=== PATIENT | female | born 1995 | race Caucasian/White ===

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

== ENCOUNTER 2017-05-09 12:30 | Emergency (ER) | payer OTHER ==
[2017-05-09 12:36] VITALS: BMI 30.6
[2017-05-09] MEDS ORDERED: ONDANSETRON 4 MG/2 ML VIAL IVPUSH ONE (13:28)
[2017-05-09] MEDS ORDERED: LACTATED RINGERS SOLUTION 1000 ML INFUS.BAG IV ONE (13:30)
--- NOTE | 2017-05-09 13:39 | PDOC ---
History of Present Illness - General Chief Complaint: Syncope/Near Syncope Stated Complaint: FLU LIKE SYMPTOMS Time Seen by Provider: 05/09/17 13:04 - History of Present Illness Initial Comments: Ms Juarez is an otherwise healthy 22yo F who presents w/ 3 days of NBNB emesis and one syncopal episode. For the past 3 days the patient has endorse flu like symptoms of fever, chills bodyaches, cough, and endorses a sick contact (mother) . She endorses 4 episodes per day of NBNB emesis. Yesterday, she was in the bathroom vomiting, felt the blood rushing out of her head, felt warm, and had a sudden syncopal episode. She was syncopized for possibly 1 minute and awoke to find herself lying on her bed with mother and brother next to her. She denied post syncopal confusion. Denies past hx of seizures, tongue biting, or incontinence. She endorses past episodes of vasovagal syncope. With regard to her emesis, she is able to keep some food/liquid down, but has loss of appetite. SH - Denies smoking, alcohol, drugs Allergies - NKDA PCP - Unknown name Past History - Past Medical History Allergies/Adverse Reactions: Allergies Allergy/AdvReac Type Severity Reaction Status Date / Time No Known Allergies Allergy Verified 05/09/17 12:31 Home Medications: Ambulatory Orders Azithromycin [Zithromax 250mg Tablets -] 250 mg PO UTDICT #6 tab 12/25/16 Ibuprofen [Motrin -] 600 mg PO QID #28 tablet 12/25/16 Ondansetron [Zofran *Odt*] 8 mg SL TID PRN #15 od.tablet 05/09/17 Asthma: No Cancer: No Cardiac Disorders: No COPD: No Diabetes: No HTN: No Seizures: No Thyroid Disease: No - Suicide/Smoking/Psychosocial Hx Smoking History: Never smoked Have you smoked in the past 12 months: No Information on smoking cessation initiated: No Hx Alcohol Use: No Drug/Substance Use Hx: No Substance Use Type: None Hx Substance Use Treatment: No Review of Systems - Review of Systems Able to Perform ROS?: Yes Constitutional: Yes: Chills, Fever HEENTM: No: Blurred Vision, Recent change in vision Respiratory: Yes: Cough. No: Shortness of Breath Cardiac (ROS): No: Chest Pain, Irregular Heart Rate ABD/GI: Yes: Poor Appetite, Poor Fluid Intake, Vomiting. No: Abdominal Distended, Abd. Pain w/ defecation, Diarrhea : No: Burning, Dysuria, Flank Pain Musculoskeletal: No: Back Pain, Joint Pain, Joint Swelling Integumentary: No: Bruising, Change in Hair/Nails Neurological: No: Headache, Numbness Psychiatric: No: Anxiety, Depression Endocrine: No: Excessive Sweating, Flushing Hematologic/Lymphatic: No: Anemia, Blood Clots, Easy Bleeding *Physical Exam - Vital Signs Last Vital Signs Temp Pulse Resp BP Pulse Ox 98.9 F 86 18 114/75 95 05/09/17 12:32 05/09/17 12:32 05/09/17 12:32 05/09/17 12:32 05/09/17 12:32 - Physical Exam Comments: GEN: AAOx3, appears ill, intermittently coughing during the interview HEENT: PERRLA, EOMi, flushed face CV: S1, S2, no murmurs audible LUNG: CTABL ABD: Soft, NT, ND MSK: NO edema, no erythema NEURO: CN 2-12 intact, no MSK or sensation deficits Heart Score/ECG Review - ECG Intrepretation Comment:: NSR @ 74bpm Normal axis Bifid p wave, ST or T wave abnormalities QTc normal at 388 ED Treatment Course - LABORATORY CBC & Chemistry Diagram: 05/09/17 13:59 05/09/17 13:59 Medical Decision Making - Medical Decision Making Ms Newby is a 22yo otherwise relatively healthy female who presents to ER with 3 days of NBNB emesis associated w/ flu like symptoms, and one episode of syncope. I suspect the emesis is likely secondary to a viral respiratory condition such as influenza, and less likely gastroenteritis or intra-abdominal pathology. I suspect her syncope is vasovagal in nature, and secondary to intravascular depletion from the emesis. -- CBC, CMP -- UA, Urine -- EKG -- Flu swab -- Zofran x1, IVF 1L bolus Will re-evaluate and likely dispo home. *DC/Admit/Observation/Transfer Diagnosis at time of Disposition: Viral upper respiratory illness - Discharge Dispostion Disposition: HOME Condition at time of disposition: Improved Admit: No - Prescriptions Prescriptions: Ondansetron [Zofran *Odt*] 8 mg SL TID PRN #15 od.tablet PRN Reason: Nausea - Referrals Referrals: Alcon Gutiérrez MD [Staff Physician] - 14 days - Patient Instructions Printed Discharge Instructions: DI for Viral Upper Respiratory Infection -- Adult Additional Instructions: You were seen in the ER due to a viral illness that lead to you vomiting and fainting once. I suspect that you were vomiting so much that you had decreased fluid in your bloodstream which lead to you fainting. Flu test was negative, but we still suespect a viral condition. Please keep hydrated and rest. We will prescribe you anti-nausea medications to help you. - Post Discharge Activity
[2017-05-09] MEDS ORDERED: ONDANSETRON 4 MG/2 ML VIAL ONE (13:55)
--- NOTE | 2017-05-09 14:05 | PDOC ---
Attending Attestation - Resident Resident Name: Alirio Sheehan - ED Attending Attestation I have performed the following: I have examined & evaluated the patient, The case was reviewed & discussed with the resident, I agree w/resident's findings & plan, Exceptions are as noted - HPI HPI: 05/09/17 14:03 22y F presnts with 3 days of nausae/vomiting (nbnb, 3-4x day), associated with subjective fever, body aches, presents yeserday with an episode of syncope while vomiting. Pt feels alittle lightheaded today especially when she is walking around, feels ipmroved when she is laying down. Pt denies any cp, abd pain, palpitations, vision changes, numbnes/tingling/weakness. LMP 04/23. No vag bleeding, dysuria, melena, hemetemsis. No post ictal period or seizure like activity. pts appears well on exam abd soft nontender mildly dry mmm suspect orthostatic secondary to her nausea/vomiting labs are unremarkble here feeling improved after fluid hydration - Physicial Exam PE: 05/10/17 08:25 see above - Medical Decision Making 05/10/17 08:25 see above Heart Score/ECG Review - ECG Impressions Comment:: 05/09/17 15:27 Twelve-lead EKG was performed and reviewed by me. There is normal sinus rhythm with a normal rate. rate of 74 normal axis, no st changes suggestive of ischemia no qt prolongation
[2017-05-09 14:19] LABS: BASO % 0.5 % (0-2.0); EOS % 0.4 % (0-4.5); HEMATOCRIT 50.3 % (32.4-45.2); HEMOGLOBIN 16.2 GM/dL (10.7-15.3); LYMPH % 20.9 % (8-40); MCH 28.7 pg (25.7-33.7); MCHC 32.1 g/dl (32.0-36.0); MEAN CELL VOLUME 89.3 fl (80-96); MEAN PLT VOLUME 8.4 fl (7.5-11.1); MONO % 16.4 % (3.8-10.2); NEUT % 61.8 % (42.8-82.8); PLATELET COUNT 255 K/MM3 (134-434); RBC 5.64 M/mm3 (3.60-5.2); RDW 13.2 % (11.6-15.6); WHITE BLOOD COUNT 6.2 K/mm3 (4.0-10.0)
[2017-05-09 14:57] LABS: ALBUMIN 3.9 g/dl (3.4-5.0); ALK PHOS 88 U/L (45-117); ANION GAP 8 (8-16); BILIRUBIN,TOTAL 0.5 mg/dL (0.2-1.0); BLOOD UREA NITROGEN 9 mg/dL (7-18); CALCIUM 8.4 mg/dL (8.5-10.1); CHLORIDE 103 mmol/L (98-107); CO2 25 mmol/L (21-32); CREATININE 0.6 mg/dL (0.55-1.02); GLUCOSE,RANDOM 81 mg/dL (74-106); SGPT/ALT 33 U/L (12-78); SODIUM 136 mmol/L (136-145); TOT PROT 7.5 g/dl (6.4-8.2)
[2017-05-09 14:58] LABS: SGOT/AST 19 U/L (15-37)
[2017-05-09 16:50] VITALS: BP 122/78; PULSE 83; TEMP 98.1
--- NOTE | 2017-05-11 11:29 | EKG ---
Test Reason : Blood Pressure : / mmHG Vent. Rate : 074 BPM Atrial Rate : 074 BPM P-R Int : 148 ms QRS Dur : 076 ms QT Int : 350 ms P-R-T Axes : 060 030 030 degrees QTc Int : 388 ms NORMAL SINUS RHYTHM POSSIBLE LEFT ATRIAL ENLARGEMENT BORDERLINE ECG NO PREVIOUS ECGS AVAILABLE Confirmed by JOHNNIE BOUDREAUX MD ([id number]) on 05/11/2017 11:29:03 AM Referred By: Confirmed By:JOHNNIE BOUDREAUX MD
== END 2017-05-09 16:51 | disposition home or self-care (01) ==
LOC: JER 12:30
PROC: 3E033GC Introduction of Other Therapeutic Substance into Peripheral Vein, Percutaneous Approach (ICD-10-PCS; principal; 2017-05-09)
DX: J06.9 Acute upper respiratory infection, unspecified (principal); B97.89 Other viral agents as the cause of diseases classified elsewhere; R55 Syncope and collapse
CPT/HCPCS: 36415; 80053; 84703; 85025; 87804; 93005; 93010; 96374; 99283-25

== ENCOUNTER 2018-03-30 17:41 | Inpatient (IN) | payer OTHER ==
--- NOTE | 2018-03-30 18:09 | PDOC ---
Rapid Medical Evaluation Chief Complaint: Overdose Medical Evaluation: Allergies Allergy/AdvReac Type Severity Reaction Status Date / Time No Known Allergies Allergy Verified 03/30/18 17:44 Vital Signs Temp Pulse Resp BP Pulse Ox 98.8 F 128 H 18 130/85 99 03/30/18 17:47 03/30/18 17:47 03/30/18 17:47 03/30/18 17:47 03/30/18 17:47 03/30/18 18:05 Pt c/o: headache dizziness after intentional ingestion of 3-4 green tablets which she knew was rat poison. Pt states was arguing w/ a male and took them. Pt states tried to throw up after but couldn't pt describes the bag as a black bag. Unable to obtain bag she she states threw the bag out last night Exam: perrl, 3mm, vss Plan: poison control called and states to order preg, labs, tylenol, coags, and observe. they were unable to give more details since the type of poison was not determined Discharge Disposition - Diagnosis Overdose Qualifiers: Encounter type: initial encounter Injury intent: intentional self-harm Qualified Code(s): T50.902A - Poisoning by unspecified drugs, medicaments and biological substances, intentional self-harm, initial encounter - Referrals - Patient Instructions - Post Discharge Activity
--- NOTE | 2018-03-30 18:09 | PDOC ---
Attending Attestation - [facility] HPI: 03/30/18 18:57 The patient is a 23 year old female, with no significant past medical history, who presents to the emergency department with abdominal pain after ingesting rat poison last night. She states she got into an argument with her ex- boyfriend around 10pm and ate 3 pellets of rat poison because she was upset. She reprots her pain started around 7am, woke her from sleep, localized to her bilateral upper abdominal quadrants. She reports nausea now. She reports one normal bowel movement today. She denies hematochezia. She denies SI or HI at this time, however, states she was suicidal last night. She states she made an impulse decision last night. She also reports some mild SOB now. The patient denies chest pain, headache and dizziness. The patient denies fever , chills, vomit, diarrhea and constipation. The patient denies dysuria, frequency, urgency and hematuria. Allergies: NKDA - Physicial Exam PE: 03/30/18 18:58 Constitutional: Awake, alert, oriented. No acute distress. Head: Normocephalic. Atraumatic Eyes: PERRL. EOMI. Conjunctivae are not pale. ENT: Mucous membranes are moist and intact. Posterior pharynx without exudates or erythema. Uvula midline. Neck: Supple. Full ROM. No lymphadenopathy. Cardiovascular: (+) tachycardic. Regular rhythm. S1, S2 regular. Distal pulses are 2+ and symmetric. Pulmonary/Chest: No evidence of respiratory distress. Clear to auscultation bilaterally No wheezing, rales or rhonchi. Abdominal: Soft and non-distended. There is no tenderness. No rebound, guarding or rigidity. No organomegaly. No palpable masses. Good bowel sounds. Back: No CVA tenderness. Musculoskeletal: No evidence of external bruising or harm. No edema. No cyanosis. No clubbing. Full range of motion in all extremities. Nocalf tenderness. Radial/pedal pulses are intact and 2+ bilaterally Skin: Skin is warm and dry. No petechiae. No purpura. Neurological: Alert and oriented to person, place, and time. Cranial nerves II -XII are grossly intact. Normal speech. Strength is grossly symmetric. No sensory deficits. Psychiatric: Good eye contact. Normal interaction, affect and behavior. - Medical Decision Making 03/30/18 18:59 Documentation prepared by Caroline Garza, acting as lpn or medical assistant for Judith Vega DO <Caroline Garza - Last Filed: 03/30/18 18:57> - Resident Resident Name: Elvis Miranda - ED Attending Attestation I have performed the following: I have examined & evaluated the patient, The case was reviewed & discussed with the resident, I agree w/resident's findings & plan, Exceptions are as noted - Medical Decision Making 03/30/18 18:09 I, Dr. Judith Vega, DO, attest that this document has been prepared under my direction and personally reviewed by me in its entirety. I further attest, that it accurately reflects all work, treatment, procedures and medical decision -making performed by me. 03/30/18 19:00 a/p: 23yo female with recent increasing depression and a suicide attempt last night -pt states she was arguing with her ex boyfriend last night and after arguing with him she took 3 tabs of rat poison to hurt herself last night -woke up at 7am with nausea and upper abd pain -pt unsure of the brand of rat poison she ingested -denies SI/HI today, but admits to wanting to hurt herself last night -FDLMP was last month -no bleeding from nares, gums, no blood in stool or urine -resident discussed the case with poison control who recommends admission because of delayed onset of the meds and can show bleeding effect up to 72 hours -will send all labs -resident placed a call to [facility] -pt placed on a 1:1 03/30/18 20:14 labs reviewed resident discussed the case with [place] who accepts pt to service <Judith Vega - Last Filed: 03/30/18 20:14> Heart Score/ECG Review - ECG Intrepretation Comment:: 03/30/18 19:07 sinus tach at 104, nl axis, nl interval, t wave inversions III which are nonspecific, no acute st/t wave findings <Judith Vega - Last Filed: 03/30/18 20:14>
--- NOTE | 2018-03-30 18:30 | PDOC ---
History of Present Illness - General Chief Complaint: Overdose Stated Complaint: DIZZINESS/STOMACH PAIN Time Seen by Provider: 03/30/18 18:02 History Source: Patient Exam Limitations: No Limitations - History of Present Illness Initial Comments: 03/30/18 18:32 23 yo F with no past medical hx presents to the emergency department s/p rat poison ingestion following a verbal argument with an ex. Per the patient, she ingested the poison approximately at 10 pm and it was 3x pellets. She does not know the name of the rat poison, but endorses it looking similar to [place] brand poison. The patient denies intent to kill herself at the moment but did want to hurt herself. She denies a previous history of suicidal attempt, self harm, and HI. Per the patient, she began having abdominal pain that was new today when she woke up at approximately 7am. The pain is cramping in description , 8/10, constant, located in the RUQ, LUQ, and epigastric region without radiation. She did not use any relieving agents. She endorses having a bowel movement today without hematochezia, but endorses nausea without vomiting. Currently denies SI, self harm intent, and homicidal ideation. No previous psychiatric hospitalization. Endorses the following: headaches. Denies the following: fever, chills, ears/nose/throat pain, chest pain, SOB, dysuria, hematuria, diarrhea, hematochezia, bruises, and leg pain/swelling. Pmhx: None Shx: abdominoplasty Meds: none Allergies: NKDA Social: Denies tobacco, alcohol, and substance abuse. Past History - Past Medical History Allergies/Adverse Reactions: Allergies Allergy/AdvReac Type Severity Reaction Status Date / Time No Known Allergies Allergy Verified 03/30/18 17:44 Home Medications: Ambulatory Orders NK [No Known Home Medication] 03/30/18 Asthma: No Cancer: No Cardiac Disorders: No COPD: No Diabetes: No HTN: No Seizures: No Thyroid Disease: No - Immunization History Immunization Up to Date: Yes - Suicide/Smoking/Psychosocial Hx Smoking History: Never smoked Have you smoked in the past 12 months: No Hx Alcohol Use: No Drug/Substance Use Hx: No Substance Use Type: None Hx Substance Use Treatment: No Review of Systems - Review of Systems Able to Perform ROS?: Yes Is the patient limited Tajik proficient: No Constitutional: No: Chills, Diaphoresis, Fever, Weakness HEENTM: No: Eye Pain, Recent change in vision, Nose Pain, Throat Pain, Mouth Pain Respiratory: No: Cough, Shortness of Breath, SOB with Exertion, Hemoptysis Cardiac (ROS): Yes: Lightheadedness. No: Chest Pain, Palpitations, Syncope, Chest Tightness ABD/GI: Yes: Nausea, Abdominal cramping. No: Blood Streaked Bowels, Constipated , Diarrhea, Poor Appetite, Poor Fluid Intake, Rectal Bleeding, Vomiting, Indigestion, Tarry Stools : No: Burning, Dysuria, Hematuria, Pain, Urgency Musculoskeletal: No: Back Pain, Gout, Joint Pain, Neck Pain Neurological: Yes: Headache. No: Numbness, Tingling, Tremors, Ataxia, Dizziness Psychiatric: Yes: Depression. No: Stressors, Change in Appetite Endocrine: No: Excessive Sweating, Unexplained Weight Gain Hematologic/Lymphatic: No: Anemia *Physical Exam - Vital Signs Last Vital Signs Temp Pulse Resp BP Pulse Ox 98.8 F 128 H 18 130/85 99 03/30/18 17:47 03/30/18 17:47 03/30/18 17:47 03/30/18 17:47 03/30/18 17:47 - Physical Exam General Appearance: Yes: Nourished, Appropriately Dressed. No: Apparent Distress, Intoxicated HEENT: positive: EOMI, RADHA, Normal Voice, Symmetrical, Pharynx Normal, Hearing Grossly Normal. negative: Pale Conjunctivae, Scleral Icterus (R), Scleral Icterus (L), Muffled/Hoarse voice, Pharyngeal Erythema, Tonsillar Exudate, Tonsillar Erythema, Nasal Congestion, Rhinorrhea, Excessive drooling Neck: positive: Trachea midline. negative: Tender, Lymphadenopathy (R), Lymphadenopathy (L), Tender lateral, Tender midline Respiratory/Chest: positive: Lungs Clear, Normal Breath Sounds. negative: Chest Tender, Respiratory Distress, Accessory Muscle Use, Crackles, Rales, Rhonchi, Stridor, Wheezing, Hyperresonant Cardiovascular: positive: Regular Rhythm, S1, S2, Tachycardia. negative: Systolic Murmur Gastrointestinal/Abdominal: positive: Normal Bowel Sounds, Flat, Soft. negative : Tender, Distended, Tenderness, Hernia Lymphatic: negative: Adenopathy Musculoskeletal: positive: Normal Inspection. negative: CVA Tenderness, Vertebral Tenderness Extremity: positive: Normal Capillary Refill, Normal Inspection, Normal Range of Motion. negative: Tender Integumentary: positive: Normal Color, Dry, Warm. negative: Rash, Swelling Neurologic: positive: or director II-XII NML intact, Fully Oriented, Alert, Normal Mood/ Affect, Normal Response, Motor Strength 5/5. negative: EOM Palsy, Sensory Deficit Moderate Sedation - Procedure Monitoring Vital Signs: Procedure Monitoring Vital Signs Temperature 98.8 F 03/30/18 17:47 Pulse Rate 128 H 03/30/18 17:47 Respiratory Rate 18 03/30/18 17:47 Blood Pressure 130/85 03/30/18 17:47 O2 Sat by Pulse Oximetry (%) 99 03/30/18 17:47 ED Treatment Course - LABORATORY CBC & Chemistry Diagram: 03/30/18 19:06 03/30/18 19:06 Medical Decision Making - Medical Decision Making 23 yo F with no past medical hx presents to the emergency department s/p rat poison ingestion following a verbal argument with an ex. Initial vitals: Initial Vital Signs Temp Pulse Resp BP Pulse Ox 98.8 F 128 H 18 130/85 99 03/30/18 17:47 03/30/18 17:47 03/30/18 17:47 03/30/18 17:47 03/30/18 17:47 Work up: ddx: ingestion of rat poison last night concern for bleeding diathesis. will order acetaminophen and aspirin levels to rule out other ingestions. will get CBC, CMP, pt inr. Laboratory Tests 03/30/18 03/30/18 03/30/18 19:06 19:06 19:06 WBC 11.8 H RBC 5.57 H Hgb 17.2 H Hct 49.3 H MCV 88.5 MCH 30.8 MCHC 34.8 RDW 13.2 Plt Count 342 D MPV 8.4 Absolute Neuts (auto) 8.3 H Neutrophils % Full Stack Developer Lymphocytes % Full Stack Developer Monocytes % Full Stack Developer Eosinophils % Full Stack Developer Basophils % Full Stack Developer Nucleated RBC % 0 PT with INR 12.50 INR 1.06 Sodium 138 Potassium 3.9 Chloride 105 Carbon Dioxide 25 Anion Gap 9 BUN 11 Creatinine 0.7 Creat Clearance w eGFR > 60 Random Glucose 79 Calcium 9.2 Total Bilirubin 0.4 AST 13 L ALT 22 Alkaline Phosphatase 80 Total Protein 8.3 H Albumin 4.5 Salicylates Acetaminophen < 2 L Alcohol, Quantitative 03/30/18 19:06 WBC RBC Hgb Hct MCV MCH MCHC RDW Plt Count MPV Absolute Neuts (auto) Neutrophils % Lymphocytes % Monocytes % Eosinophils % Basophils % Nucleated RBC % PT with INR INR Sodium Potassium Chloride Carbon Dioxide Anion Gap BUN Creatinine Creat Clearance w eGFR Random Glucose Calcium Total Bilirubin AST ALT Alkaline Phosphatase Total Protein Albumin Salicylates < 1.7 L Acetaminophen Alcohol, Quantitative < 3.0 A message was left on [facility] for follow up with the patient. 03/30/18 18:34 Per poison control, the ingested substance is likely a long acting vitamin k inhibitor. long acting warfarin pretty much. it takes 48-72 hours to show the change in the blood stream and needs a repeat in the next 2-3 days. she would show symptoms within 6 hours. do routine overdose screening. Blade at poison control. symptoms would be bleeding risk such as bruises and karine bleeding. active ingredient diphacinone. Dispo: Will admit patient for trending INRs for medical clearance. *DC/Admit/Observation/Transfer Diagnosis at time of Disposition: Overdose Qualifiers: Encounter type: initial encounter Injury intent: intentional self-harm Qualified Code(s): T50.902A - Poisoning by unspecified drugs, medicaments and biological substances, intentional self-harm, initial encounter - Referrals - Patient Instructions - Post Discharge Activity
[2018-03-30] MEDS ORDERED: ONDANSETRON *ODT* 4 MG TABLET SL ONE (19:13)
[2018-03-30 19:14] LABS: HEMATOCRIT 49.3 % (32.4-45.2); HEMOGLOBIN 17.2 GM/dL (10.7-15.3); MCH 30.8 pg (25.7-33.7); MCHC 34.8 g/dl (32.0-36.0); MEAN CELL VOLUME 88.5 fl (80-96); MEAN PLT VOLUME 8.4 fl (7.5-11.1); PLATELET COUNT 342 K/MM3 (134-434); RBC 5.57 M/mm3 (3.60-5.2); RDW 13.2 % (11.6-15.6); WHITE BLOOD COUNT 11.8 K/mm3 (4.0-10.0)
[2018-03-30] MEDS ORDERED: ONDANSETRON *ODT* 4 MG TABLET ONE (19:24)
[2018-03-30 19:28] LABS: INR 1.06 (0.83-1.09); PROTHROMBIN TIME (PATIENT) 12.5 SEC (9.7-13.0)
[2018-03-30 19:50] LABS: ALBUMIN 4.5 g/dl (3.4-5.0); ALK PHOS 80 U/L (45-117); ANION GAP 9 MMOL/L (8-16); BILIRUBIN,TOTAL 0.4 mg/dL (0.2-1); BLOOD UREA NITROGEN 11 mg/dL (7-18); CALCIUM 9.2 mg/dL (8.5-10.1); CHLORIDE 105 mmol/L (98-107); CO2 25 mmol/L (21-32); CREATININE 0.7 mg/dL (0.55-1.3); GLUCOSE,RANDOM 79 mg/dL (74-106); POTASSIUM 3.9 mmol/L (3.5-5.1); SGOT/AST 13 U/L (15-37); SGPT/ALT 22 U/L (13-61); SODIUM 138 mmol/L (136-145); TOT PROT 8.3 g/dl (6.4-8.2)
--- NOTE | 2018-03-30 22:09 | PN ---
Teaching Attending Note Name of Resident: Ellis Rivera ATTENDING PHYSICIAN STATEMENT I saw and evaluated the patient. I reviewed the resident's note and discussed the case with the resident. I agree with the resident's findings and plan as documented. CC: I took rat poison SUBJECTIVE: Seen and examined; please see resident note for further historical documentation. This is a 23 y/o HF who presents following a suicide attempt last night with taking 3 tabs of rat poison (unknown brand, dose, etc.). She has not tried suicide before, she has no prior psych hx or hospitalizations. No PMH and no home meds. She does admit that she took the poison to end her own life. She did it because she had a fight with her ex boyfriend. Currently she c/o headache; she gets tension type PRICE's chronically but this is different than her baseline headache in severity; nothing makes it better or worse. Normal neuro exam with no fnd. No bleeding noted. Poison control recommended monitoring INR and for bleeding for 72 hours. Psychiatry was called by the ER. She will be brought to the floor on a 1:1; CT head pending 10 sys ROS done and negative aside from HPI PMH and PSH reviewed Socially she denies prior psych issues/hospitalizations, tox screen pending. Reviewed SH per chart FH asked and noncontributory Medication list reviewed OBJECTIVE: VS, labs, imaging reviewed NAD, AAO, resting comfortably in bed RRR s1/2 no mgr Lungs CTAB w/ sym exp NT ND +BS MM moist, no bleeding, NC AT EOMI PERRLA CN2-12 wnl, no fnd Anxious mood with blunted affect Labs reviewed; CBC, coags, BMP normal. Utox pending. Serum tox negative for APAP, salycylates EKG reviewed CT head pending ASSESSMENT AND PLAN: This is a 23 y/o who presents with a suicide attempt after taking rat poison 1) Suicide Attempt with Rat Poison -Monitor in house for 72 hours after dose (24 hours today, so in 48 hours would complete) checking INR, CBC, BMP -1:1 until cleared; may require further psychiatric care per specialty service -Suicide precautions, monitor for bleeding, followup with psych. Update poison control per protocol. 2) Headache -As different in severity from her baseline (but notably no neurologic changes) will check CT head to r/o any severe pathology. PRN apap. 3) Elevated H/H -Check reticulocyte count and peripheral smear; followup with PCP. FENA -PO -PRN replete -Regular -1:1; as tolerated Consultants: Psychiatry Full Code Dispo: 72 hours post dose (48 remaining) and pending psych consult; ultimate dispo per specialty service.
--- NOTE | 2018-03-30 22:09 | HP ---
CHIEF COMPLAINT: PCP: HISTORY OF PRESENT ILLNESS: 23 yo F with no PMH presents to the ED w/ R and L upper quadrant abdominal pain s/p rat poison ingestion following a verbal argument with ex boyfriend. Pt was arguing w/ boyfriend and in the moment got angry and spontaneously ingested the poison approximately at 10 pm and it was 3-4 pellets. States she made an impulse decision last night. She does not know the name of the rat poison, but endorses it looking similar to Len[place] brand poison. The patient denies intent to kill herself at the moment but did want to hurt herself. She denies a previous history of suicidal attempt, self harm, and HI. Per the patient, she began having abdominal pain that was new today when she woke up at approximately 7am. The pain is cramping in description, 8/10, constant, located in the RUQ, LUQ, and epigastric region without radiation. She did not use any relieving agents. She endorses having a bowel movement today without hematochezia, but endorses nausea without vomiting. Currently denies SI, self harm intent, and homicidal ideation. No previous psychiatric hospitalization. Endorses the following: headaches. Denies the following: fever, chills, ears/ nose/throat pain, gum bleeding, cp, SOB, dysuria, hematuria, diarrhea, hematochezia, bruises, and leg pain/swelling, hallucinations. Per pt, she has good family support and feels safe at home. lives w/ brother and mother and has two children ages 2yo and 4 yo. Of note LMP 2 wks ago, pt has IUD mirena ER course was notable for: (1)zofran, psych consult, 1:1 (2) etoh, acetaminophen, salicylates neg (3)INR 1.06 Poison control recommended monitoring INR and for bleeding for 72 hours. Recent Travel: PAST MEDICAL HISTORY: 2 vaginal births PAST SURGICAL HISTORY: reggie castelan Social History: Smoking: denies Alcohol: occasional Drugs: denies Family History: None Allergies No Known Allergies Allergy (Verified 03/30/18 17:44) HOME MEDICATIONS: Home Medications Medication Instructions Recorded NK [No Known Home Medication] 03/30/18 REVIEW OF SYSTEMS as per hpi PHYSICAL EXAMINATION Vital Signs - 24 hr 03/30/18 03/30/18 17:47 20:09 Temperature 98.8 F 98.6 F Pulse Rate 128 H Pulse Rate [ 102 H Left Radial] Respiratory 18 Rate Blood Pressure 130/85 Blood Pressure 120/78 [Left Arm] O2 Sat by Pulse 99 100 Oximetry (%) GENERAL: AOX3 NAD HEAD: NCAT EYES: extraocular movements intact, sclera anicteric, conjunctiva clear. No lid lag. EARS, NOSE, THROAT: Ears normal, nares patent, oropharynx clear without exudates. MMM NECK: Normal range of motion, supple without lymphadenopathy, JVD, or masses. LUNGS: CTAB HEART: RRR, normal S1 and S2 without m/r/g ABDOMEN: Soft, mild TTP diffuse, not distended, normoactive bowel sounds, no guarding, no rebound, no masses. +surgical scars/stretch torres? MUSCULOSKELETAL: Normal range of motion at all joints. No bony deformities or tenderness. UPPER EXTREMITIES: 2+ pulses, warm, well-perfused. No cyanosis. No clubbing. No peripheral edema. LOWER EXTREMITIES: 2+ pulses, warm, well-perfused. No calf tenderness. No peripheral edema. NEUROLOGICAL: Cranial nerves II-XII intact. Normal speech. PSYCHIATRIC: Cooperative. Good eye contact. Appropriate mood and affect. denies any current SI, HI, AH, VH SKIN: Warm, dry, normal turgor, no rashes or lesions noted, normal capillary refill. Laboratory Results - last 24 hr 03/30/18 03/30/18 03/30/18 19:06 19:06 19:06 WBC 11.8 H RBC 5.57 H Hgb 17.2 H Hct 49.3 H MCV 88.5 MCH 30.8 MCHC 34.8 RDW 13.2 Plt Count 342 D MPV 8.4 Absolute Neuts (auto) 8.3 H Neutrophils % 70.1 Lymphocytes % 20.6 Monocytes % 8.4 Eosinophils % 0.4 Basophils % 0.5 Nucleated RBC % 0 PT with INR 12.50 INR 1.06 Sodium 138 Potassium 3.9 Chloride 105 Carbon Dioxide 25 Anion Gap 9 BUN 11 Creatinine 0.7 Creat Clearance w eGFR > 60 Random Glucose 79 Calcium 9.2 Total Bilirubin 0.4 AST 13 L ALT 22 Alkaline Phosphatase 80 Total Protein 8.3 H Albumin 4.5 Salicylates Acetaminophen < 2 L Alcohol, Quantitative 03/30/18 19:06 WBC RBC Hgb Hct MCV MCH MCHC RDW Plt Count MPV Absolute Neuts (auto) Neutrophils % Lymphocytes % Monocytes % Eosinophils % Basophils % Nucleated RBC % PT with INR INR Sodium Potassium Chloride Carbon Dioxide Anion Gap BUN Creatinine Creat Clearance w eGFR Random Glucose Calcium Total Bilirubin AST ALT Alkaline Phosphatase Total Protein Albumin Salicylates < 1.7 L Acetaminophen Alcohol, Quantitative < 3.0 EKG- sinus tach at 104, nl axis, nl interval, t wave inversions III which are nonspecific, no acute st/t wave findings ASSESSMENT/PLAN: 23 yo F with no PMH presents to the ED w/ R and L upper quadrant abdominal pain s/p rat poison ingestion, wanting to hurt herself, following a verbal argument with ex boyfriend. Psych Depression? vs SI? pt denies any current SI, HI, AH, VH 1:1 psych consult Poison control recommended monitoring INR and for bleeding for 72 hours. can give zofran for nausea if needed, Qtc 418 etoh, acetaminophen, salicylates neg INR 1.06 monitor INR q12h monitor for signs of bleed tylenol for pain/PRICE order UA, U-tox, preg test Worsening PRICE - pt says worst ever will order CT head in consideration of recent rat poison ingestion, r/o bleed tylenol polycythemia? H/H 17.2 and was elevated in 05/22 retic count consider blood smear FEN no IVF replete prn regular diet, no sharp utensils ppx SCD Dispo med/surg psych eval Poison control recommended monitoring INR and for bleeding for 72 hours. Visit type - Emergency Visit Emergency Visit: Yes ED Registration Date: 03/30/18 Care time: The patient presented to the Emergency Department on the above date and was hospitalized for further evaluation of their emergent condition. - New Patient This patient is new to me today: Yes Date on this admission: 03/30/18 - Critical Care Critical Care patient: No
[2018-03-30] MEDS ORDERED: ACETAMINOPHEN 1000 MG/100 ML VIAL (NON FORMULARY) IVPB ONE (22:30)
[2018-03-30] MEDS ORDERED: ACETAMINOPHEN 325 MG TABLET (FP) PO ONE (23:09)
[2018-03-30] MEDS ORDERED: ACETAMINOPHEN 325 MG TABLET (FP) ONE (23:10)
[2018-03-30 23:33] LABS: URINE APPEARANCE SLCLOUDY; URINE BILIRUBIN NEGATIVE (<2.0 mg/dL); URINE COLOR YELLOW; URINE GLUCOSE (UA) NEGATIVE (NEGATIVE); URINE KETONE 1+ (NEGATIVE); URINE LEUK ESTERASE NEGATIVE (NEGATIVE); URINE NITRITE NEGATIVE (NEGATIVE); URINE PROTEIN NEGATIVE (NEGATIVE)
[2018-03-31 00:48] LABS: COCAINE, UR NEGATIVE ng/ml (CUTOFF=300); METHADONE, UR NEGATIVE ng/ml (CUTOFF=300); OPIATES, URI NEGATIVE ng/ml (CUTOFF=300); PHENCYCLIDINE,URINE NEGATIVE ng/ml (CUTOFF=25); URINE AMPHETAMINES NEGATIVE ng/ml (CUTOFF=500); URINE BARBITURATES NEGATIVE ng/ml (CUTOFF=200); URINE BENZODIAZEPINES NEGATIVE ng/ml (CUTOFF=200)
[2018-03-31 00:57] LABS: ACANTHOCYTES 0; ANISOCYTOSIS 0; HELMET CELLS 0; HOWELL-JOLLY BODIES 0; MACROCYTOSIS 0; OVALOCYTE 0; PLATELET ESTIMATE NORMAL; ROULEAU 0; SICKELED CELLS 0; TARGET CELLS 0; TEAR DROP CELLS 0; TOXIC GRANULATION 0
[2018-03-31] MEDS ORDERED: ACETAMINOPHEN 1000 MG/100 ML VIAL (NON FORMULARY) IVPB PRN (04:00)
[2018-03-31 07:02] LABS: BASO % 0.6 % (0-2.0); EOS % 0.9 % (0-4.5); HEMATOCRIT 46.2 % (32.4-45.2); HEMOGLOBIN 16.1 GM/dL (10.7-15.3); LYMPH % 31.5 % (8-40); MCHC 34.9 g/dl (32.0-36.0); MEAN CELL VOLUME 88.8 fl (80-96); MEAN PLT VOLUME 8.7 fl (7.5-11.1); PLATELET COUNT 315 K/MM3 (134-434); RDW 13.1 % (11.6-15.6); WHITE BLOOD COUNT 9.1 K/mm3 (4.0-10.0)
[2018-03-31 07:46] LABS: INR 1.16 (0.83-1.09); PROTHROMBIN TIME (PATIENT) 13.7 SEC (9.7-13.0)
[2018-03-31 07:49] LABS: ACTIVATED PTT 28.6 SECONDS (25.2-36.5)
[2018-03-31 08:05] LABS: ALBUMIN 3.8 g/dl (3.4-5.0); ALK PHOS 70 U/L (45-117); ANION GAP 10 MMOL/L (8-16); BILIRUBIN,TOTAL 0.7 mg/dL (0.2-1); BLOOD UREA NITROGEN 11 mg/dL (7-18); CALCIUM 8.7 mg/dL (8.5-10.1); CHLORIDE 104 mmol/L (98-107); CO2 24 mmol/L (21-32); CREATININE 0.7 mg/dL (0.55-1.3); GLUCOSE,RANDOM 69 mg/dL (74-106); MAGNESIUM 2.1 mg/dL (1.8-2.4); PHOSPHOROUS 4.5 mg/dL (2.5-4.9); POTASSIUM 4.1 mmol/L (3.5-5.1); SGOT/AST 11 U/L (15-37); SGPT/ALT 20 U/L (13-61); SODIUM 138 mmol/L (136-145); TOT PROT 7.2 g/dl (6.4-8.2)
--- NOTE | 2018-03-31 09:40 | EKG ---
Test Reason : Blood Pressure : / mmHG Vent. Rate : 104 BPM Atrial Rate : 104 BPM P-R Int : 150 ms QRS Dur : 074 ms QT Int : 318 ms P-R-T Axes : 046 026 017 degrees QTc Int : 418 ms SINUS TACHYCARDIA OTHERWISE NORMAL ECG WHEN COMPARED WITH ECG OF 09-MAY-2017 14:46, NO SIGNIFICANT CHANGE WAS FOUND Confirmed by JOHNNIE BOUDREAUX MD ([id number]) on 03/31/2018 9:40:20 AM Referred By: Confirmed By:JOHNNIE BOUDREAUX MD
[2018-03-31] MEDS: LACTATED RINGERS SOLUTION 1,000 ML/1,000 ML INFUS.BAG IV SCH (12:21)
[2018-03-31 12:26] LABS: BASO % 0.5 % (0-2.0); EOS % 0.3 % (0-4.5); HEMATOCRIT 47.6 % (32.4-45.2); HEMOGLOBIN 15.4 GM/dL (10.7-15.3); LYMPH % 21.5 % (8-40); MCH 28.9 pg (25.7-33.7); MCHC 32.3 g/dl (32.0-36.0); MEAN CELL VOLUME 89.7 fl (80-96); MEAN PLT VOLUME 8.5 fl (7.5-11.1); MONO % 10.2 % (3.8-10.2); NEUT % 67.5 % (42.8-82.8); PLATELET COUNT 300 K/MM3 (134-434); RBC 5.31 M/mm3 (3.60-5.2); WHITE BLOOD COUNT 8.7 K/mm3 (4.0-10.0)
[2018-03-31 12:40] VITALS: BMI 26.8
--- NOTE | 2018-03-31 13:38 | PN ---
Teaching Attending Note Name of Resident: Hansa Carbajal ATTENDING PHYSICIAN STATEMENT I saw and evaluated the patient. I reviewed the resident's note and discussed the case with the resident. I agree with the resident's findings and plan as documented. SUBJECTIVE: No fever or chills . No PRICE at time of evaluation 10 am . No Abd pain, no CP or SOB. feels much better . No change in vision . denies SI today OBJECTIVE: NAD, awake , alert and cooperative . MMM. CV: RRR. NO MRG Lungs: CTAB Ext : no edema or erythema Abd: soft, minimal TTP in all quadrants. ASSESSMENT AND PLAN: 23 y/o lady with no significant medical history who presented after ingestion of rat poison in a suicide attempt 1- suicide attempt: NO SI at this time - psych eval pending 2- Rat poison ingestion: Nl LFTs so far . abd pain improved . INR slightly increased. - continue to monitor LFTS, EKg and INR for 48 more hours 3- Erythrocytosis: all cell lines dropped after hydration . might have been heme concentrated. - cont IVf - if it remains elevated, then heme eval as out pt COnt 1:1
[2018-03-31 13:46] LABS: ALBUMIN 3.8 g/dl (3.4-5.0); ALK PHOS 67 U/L (45-117); ANION GAP 10 MMOL/L (8-16); BILIRUBIN,TOTAL 0.7 mg/dL (0.2-1); BLOOD UREA NITROGEN 11 mg/dL (7-18); CALCIUM 8.8 mg/dL (8.5-10.1); CHLORIDE 103 mmol/L (98-107); CO2 24 mmol/L (21-32); CREATININE 0.6 mg/dL (0.55-1.3); GLUCOSE,RANDOM 72 mg/dL (74-106); POTASSIUM 4.2 mmol/L (3.5-5.1); SGOT/AST 11 U/L (15-37); SGPT/ALT 22 U/L (13-61); SODIUM 137 mmol/L (136-145); TOT PROT 7.3 g/dl (6.4-8.2)
--- NOTE | 2018-03-31 14:39 | PN ---
Mental Health Exam - Mental Status Exam Alert and Oriented to: Time, Place, Person Cognitive Function: Good Patient Appearance: Well Groomed Mood: Apprehensive Affect: Appropriate, Normal Range Patient Behavior: Passive, Appropriate, Cooperative Speech Pattern: Clear Voice Loudness: Normal Thought Process: Intact, Goal Oriented Thought Disorder: Not Present Hallucinations: None, Denies Suicidal Ideation: None, Denies, Past (TOOK "RAT POISIN TABS, AFTER TELEPHONE ALTERCATION WITH EX". ) Homicidal Ideation: None Insight/Judgement: Poor Sleep: Well Appetite: Fair Muscle strength/Tone: Normal Gait/Station: Normal
--- NOTE | 2018-03-31 14:48 | PN ---
Progress Note, Physician Chief Complaint: THIS IS A 23 YO FEMALE WHO IS ADMITTED AFTER INGESTION OF RAT POISON ALLEGEDLY. APPARENTLY SHE WAS HAVING A VERBAL ARGUMENT WITH HER EX BOYFRIEND (DATING 1.5 YRS). SHE IS CO-OPERATIVE ON [employer]. dENIES ANY SUICIDAL OR HOMICIDAL IDEATION CURRENTLY. sTATED SHE JUST "SNAPPED", BY TAKING POISON. SHE HAS A LOT OF POSITIVE FAMILY SUPPORT, MOTHER WHERE SHE RESIDES, 2YR OLD, 4YR OLD. MSE.. SPEAPS WITH ACCENT, APPEARANCE WITH NOSE RING, CLIENT HAS ONE EPISODE OF 'SADNESS IN PAST" AFTER ANOTHER ALTERCATION WITH SAME MAN. eSIPODES OF CRYING ALSO. cLIENT HAS 11TH GRADE EDUCATION, NO ged, BABY DADDY SUPPORTS HER WITHOUT A COURT ORDER. sPEAKS WITH [place] ACCENT. CLIENT IS NOT WORKING. - Current Medication List Current Medications: Active Medications Lactated Ringer's (Lactated Ringers Solution) 1,000 ml in 1,000 mls @ 83 mls/ hr IV ASDIR VIC Last Admin: 03/31/18 12:21 Dose: 83 mls/hr - Objective Vital Signs: Vital Signs Temperature 98.2 F 03/31/18 12:35 Pulse Rate 100 H 03/31/18 12:35 Respiratory Rate 18 03/31/18 12:35 Blood Pressure 126/80 03/31/18 12:35 O2 Sat by Pulse Oximetry (%) 99 03/31/18 12:44 Psychiatric: Yes: Other (CLIENT TOOK ALLEDGED OD OF RAT POISON.) Labs: CBC, BMP 03/31/18 11:47 03/31/18 11:47 INR, PTT INR 1.16 (0.83-1.09) H 03/31/18 06:30 Problem List - Problems (1) Depression with anxiety Assessment/Plan: CLIENT IS PERIODIC ANXIETY RELATED TO RELATIONSHIPS, FUTURE, FEAR OF MEETING PEOPLE, LOSS OS INTREST, APPETITE AND SLEEP IS OK. KEEP 1;1 FOR 24 HOURS, CONFERRED WITH NURSING STAFF. START ZOLOFT 25 MG PO FOR ANXIETY, SYMPTOMS, START 2017. MAY BE DISCHARHGED WITH FOLLOW UP AT COUNSELLING SERVICES. MAY CALL INSURANCE TO GET APPOINTMENT. THANKS FOR CONSULT. Code(s): F41.8 - OTHER SPECIFIED ANXIETY DISORDERS
--- NOTE | 2018-03-31 15:34 | PN ---
Physical Exam: SUBJECTIVE: Patient seen and examined at bedside. No acute complaints overnight. Pt denies chest pain, sob, f/c, n/v. OBJECTIVE: Vital Signs Temperature 98.6 F 03/31/18 15:22 Pulse Rate 69 03/31/18 15:22 Respiratory Rate 18 03/31/18 15:22 Blood Pressure 102/59 L 03/31/18 15:22 O2 Sat by Pulse Oximetry (%) 99 03/31/18 12:44 GENERAL: AAOx3. NAD. Comfortable. HEENT: AT/NC. EOMI. RADHA. Moist mucus membranes. NECK: Supple, no LAD/JVD. LUNGS: CTA B/L. No HEART: Regular rate and rhythm, S1, S2 without murmur, rub or gallop. ABDOMEN: Soft, nontender, nondistended, normoactive bowel sounds, no guarding, no rebound, no hepatosplenomegaly, no masses. EXTREMITIES: 2+ pulses, warm, well-perfused, no edema. NEUROLOGICAL: Cranial nerves II through XII grossly intact. Normal speech, gait not observed. PSYCH: Normal mood, normal affect. SKIN: Warm, dry, normal turgor, no rashes or lesions noted CBCD WBC 8.7 K/mm3 (4.0-10.0) 03/31/18 11:47 RBC 5.31 M/mm3 (3.60-5.2) H 03/31/18 11:47 Hgb 15.4 GM/dL (10.7-15.3) H 03/31/18 11:47 Hct 47.6 % (32.4-45.2) H 03/31/18 11:47 MCV 89.7 fl (80-96) 03/31/18 11:47 MCHC 32.3 g/dl (32.0-36.0) 03/31/18 11:47 RDW 13.0 % (11.6-15.6) 03/31/18 11:47 Plt Count 300 K/MM3 (134-434) 03/31/18 11:47 MPV 8.5 fl (7.5-11.1) 03/31/18 11:47 CMP Sodium 137 mmol/L (136-145) 03/31/18 11:47 Potassium 4.2 mmol/L (3.5-5.1) 03/31/18 11:47 Chloride 103 mmol/L (98-107) 03/31/18 11:47 Carbon Dioxide 24 mmol/L (21-32) 03/31/18 11:47 Anion Gap 10 MMOL/L (8-16) 03/31/18 11:47 BUN 11 mg/dL (7-18) 03/31/18 11:47 Creatinine 0.6 mg/dL (0.55-1.3) 03/31/18 11:47 Creat Clearance w eGFR > 60 (>60) 03/31/18 11:47 Calcium 8.8 mg/dL (8.5-10.1) 03/31/18 11:47 Total Bilirubin 0.7 mg/dL (0.2-1) 03/31/18 11:47 AST 11 U/L (15-37) L 03/31/18 11:47 ALT 22 U/L (13-61) 03/31/18 11:47 Alkaline Phosphatase 67 U/L (45-117) 03/31/18 11:47 Total Protein 7.3 g/dl (6.4-8.2) 03/31/18 11:47 Albumin 3.8 g/dl (3.4-5.0) 03/31/18 11:47 Active Medications Lactated Ringer's (Lactated Ringers Solution) 1,000 ml in 1,000 mls @ 83 mls/ hr IV ASDIR VIC Last Admin: 03/31/18 12:21 Dose: 83 mls/hr EKG- sinus tach at 104, nl axis, nl interval, t wave inversions III which are nonspecific, no acute st/t wave findings ASSESSMENT/PLAN: 23 yo F with no PMH presents to the ED w/ R and L upper quadrant abdominal pain s/p rat poison ingestion, wanting to hurt herself, following a verbal argument with ex boyfriend. #Suicidal Ideation -Poison control recommended monitoring INR and for bleeding for 72 hours; can give zofran for nausea if needed, Qtc 418 -Pt stable with no thoughts of self-harm -Per psych, 1:1 x 24h, may be followed in outside clinic -etoh, acetaminophen, salicylates neg -INR 1.06; monitor INR q12h monitor for signs of bleed tylenol for pain/PRICE #Thrombocytosis -H/H 17.2 and was elevated in 05/22 -retic count -consider blood smear #FEN no IVF replete prn regular diet, no sharp utensils #ppx SCD Dispo -med/surg -Poison control recommended monitoring INR and for bleeding for 72 hours Visit type - Emergency Visit Emergency Visit: Yes ED Registration Date: 03/30/18 Care time: The patient presented to the Emergency Department on the above date and was hospitalized for further evaluation of their emergent condition. - New Patient This patient is new to me today: Yes Date on this admission: 03/31/18 - Critical Care Critical Care patient: No
--- NOTE | 2018-03-31 19:09 | EKG ---
Test Reason : Blood Pressure : / mmHG Vent. Rate : 075 BPM Atrial Rate : 075 BPM P-R Int : 156 ms QRS Dur : 076 ms QT Int : 382 ms P-R-T Axes : 066 048 026 degrees QTc Int : 426 ms NORMAL SINUS RHYTHM WITH SINUS ARRHYTHMIA NORMAL ECG WHEN COMPARED WITH ECG OF 30-MAR-2018 18:52, NO SIGNIFICANT CHANGE WAS FOUND Confirmed by JOHNNIE BOUDREAUX MD ([id number]) on 03/31/2018 7:09:03 PM Referred By: AYE LI Confirmed By:JOHNNIE BOUDREAUX MD
[2018-03-31 20:56] LABS: INR 1.13 (0.83-1.09); PROTHROMBIN TIME (PATIENT) 13.3 SEC (9.7-13.0)
[2018-04-01 07:25] LABS: BASO % 0.5 % (0-2.0); EOS % 1.1 % (0-4.5); HEMATOCRIT 46.8 % (32.4-45.2); HEMOGLOBIN 15.1 GM/dL (10.7-15.3); LYMPH % 28.8 % (8-40); MCH 29.1 pg (25.7-33.7); MCHC 32.4 g/dl (32.0-36.0); MEAN CELL VOLUME 89.9 fl (80-96); MEAN PLT VOLUME 8.7 fl (7.5-11.1); MONO % 10.1 % (3.8-10.2); NEUT % 59.5 % (42.8-82.8); PLATELET COUNT 278 K/MM3 (134-434); RBC 5.21 M/mm3 (3.60-5.2); RDW 12.9 % (11.6-15.6); WHITE BLOOD COUNT 9.7 K/mm3 (4.0-10.0)
[2018-04-01 07:32] LABS: INR 1.19 (0.83-1.09); PROTHROMBIN TIME (PATIENT) 14.1 SEC (9.7-13.0)
[2018-04-01 07:50] LABS: ALBUMIN 3.6 g/dl (3.4-5.0); ALK PHOS 66 U/L (45-117); ANION GAP 7 MMOL/L (8-16); BILIRUBIN,TOTAL 0.7 mg/dL (0.2-1); BLOOD UREA NITROGEN 8 mg/dL (7-18); CALCIUM 8.6 mg/dL (8.5-10.1); CHLORIDE 104 mmol/L (98-107); CO2 26 mmol/L (21-32); CREATININE 0.6 mg/dL (0.55-1.3); GLUCOSE,RANDOM 70 mg/dL (74-106); POTASSIUM 3.9 mmol/L (3.5-5.1); SGOT/AST 8 U/L (15-37); SGPT/ALT 16 U/L (13-61); SODIUM 138 mmol/L (136-145); TOT PROT 6.6 g/dl (6.4-8.2)
--- NOTE | 2018-04-01 09:26 | PN ---
Physical Exam: SUBJECTIVE: Patient seen and examined at bedside. No acute events overnight. Denies f/c, n/c, cp, sob, abd pain. No urinary/bowel symptoms, no blood in urine or stool. OBJECTIVE: Vital Signs Temperature 98.0 F 04/01/18 05:00 Pulse Rate 72 04/01/18 05:00 Respiratory Rate 20 04/01/18 05:00 Blood Pressure 100/58 L 04/01/18 05:00 O2 Sat by Pulse Oximetry (%) 99 03/31/18 12:44 GENERAL: AAOx3. NAD. Comfortable. HEENT: AT/NC. EOMI. RADHA. Moist mucus membranes. NECK: Supple, no LAD/JVD. LUNGS: CTA B/L. No HEART: Regular rate and rhythm, S1, S2 without murmur, rub or gallop. ABDOMEN: Soft, nontender, nondistended, normoactive bowel sounds, no guarding, no rebound, no hepatosplenomegaly, no masses. EXTREMITIES: 2+ pulses, warm, well-perfused, no edema. NEUROLOGICAL: Cranial nerves II through XII grossly intact. Normal speech, gait not observed. PSYCH: Normal mood, normal affect. SKIN: Warm, dry, normal turgor, no rashes or lesions noted CBCD WBC 9.7 K/mm3 (4.0-10.0) 04/01/18 07:00 RBC 5.21 M/mm3 (3.60-5.2) H 04/01/18 07:00 Hgb 15.1 GM/dL (10.7-15.3) 04/01/18 07:00 Hct 46.8 % (32.4-45.2) H 04/01/18 07:00 MCV 89.9 fl (80-96) 04/01/18 07:00 MCHC 32.4 g/dl (32.0-36.0) 04/01/18 07:00 RDW 12.9 % (11.6-15.6) 04/01/18 07:00 Plt Count 278 K/MM3 (134-434) 04/01/18 07:00 MPV 8.7 fl (7.5-11.1) 04/01/18 07:00 CMP Sodium 138 mmol/L (136-145) 04/01/18 07:00 Potassium 3.9 mmol/L (3.5-5.1) 04/01/18 07:00 Chloride 104 mmol/L (98-107) 04/01/18 07:00 Carbon Dioxide 26 mmol/L (21-32) 04/01/18 07:00 Anion Gap 7 MMOL/L (8-16) L 04/01/18 07:00 BUN 8 mg/dL (7-18) 04/01/18 07:00 Creatinine 0.6 mg/dL (0.55-1.3) 04/01/18 07:00 Creat Clearance w eGFR > 60 (>60) 04/01/18 07:00 Calcium 8.6 mg/dL (8.5-10.1) 04/01/18 07:00 Total Bilirubin 0.7 mg/dL (0.2-1) 04/01/18 07:00 AST 8 U/L (15-37) L 04/01/18 07:00 ALT 16 U/L (13-61) 04/01/18 07:00 Alkaline Phosphatase 66 U/L (45-117) 04/01/18 07:00 Total Protein 6.6 g/dl (6.4-8.2) 04/01/18 07:00 Albumin 3.6 g/dl (3.4-5.0) 04/01/18 07:00 Active Medications Lactated Ringer's (Lactated Ringers Solution) 1,000 ml in 1,000 mls @ 83 mls/ hr IV ASDIR VIC Last Admin: 03/31/18 12:21 Dose: 83 mls/hr Sertraline HCl (Zoloft -) 25 mg PO DAILY [facility] EKG- sinus tach at 104, nl axis, nl interval, t wave inversions III which are nonspecific, no acute st/t wave findings ASSESSMENT/PLAN: 23 yo F with no PMH presents to the ED w/ R and L upper quadrant abdominal pain s/p rat poison ingestion, wanting to hurt herself, following a verbal argument with ex boyfriend. #Suicidal Ideation -Pt stable with no thoughts of self-harm/suicide. -Poison control recommended monitoring INR and for bleeding for 72 hours; can give zofran for nausea if needed, Qtc 418 -Per psych, 1:1 x 24h, may be followed in outside clinic; Zoloft 25 PO QD -Utox neg -INR today 1.19, stable. Cont to trend -monitor for signs of bleed -tylenol for pain/PRICE #Erythrocytosis; possibly 2/2 hemoconcentration. -H/H 15.1 today -retic count wnl #FEN -LR @ 83 -replete prn -regular diet, no sharp utensils #ppx -SCD Dispo -cont to monitor on med-surg -Poison control recommended monitoring INR and for bleeding for 72 hours -1:1 Visit type - Emergency Visit Emergency Visit: Yes ED Registration Date: 03/30/18 Care time: The patient presented to the Emergency Department on the above date and was hospitalized for further evaluation of their emergent condition. - New Patient This patient is new to me today: No - Critical Care Critical Care patient: No
[2018-04-01] MEDS: SERTRALINE HCL 25 MG TABLET (FP) PO SCH (10:01)
[2018-04-01] MEDS: LACTATED RINGERS SOLUTION 1,000 ML/1,000 ML INFUS.BAG IV SCH ×2 (10:01→18:17)
--- NOTE | 2018-04-01 12:57 | PN ---
Teaching Attending Note Name of Resident: Anamaria Keene ATTENDING PHYSICIAN STATEMENT I saw and evaluated the patient. I reviewed the resident's note and discussed the case with the resident. I agree with the resident's findings and plan as documented. SUBJECTIVE: no fever or chills. still feels dizzy. No abd pain OBJECTIVE: NAD, awake , alert and cooperative . MMM. CV: RRR. NO MRG Lungs: CTAB Ext : no edema or erythema Abd: soft, minimal TTP in all quadrants. strength 5/5 in upper and lower extremities proximally and distally. finger to nose nL. no facial droop. EOMi, no nystagmus . ASSESSMENT AND PLAN: 23 y/o lady with no significant medical history who presented after ingestion of rat poison in a suicide attempt 1- suicide attempt: NO SI at this time - psych eval noted. - dc 1:1 . - start zoloft 2- Rat poison ingestion: Nl LFTs and INR noted. monitor LFTS and INR tomorrow 3- Erythrocytosis: due to volume depletion . resolved with IVF . cont for now HLOC
--- NOTE | 2018-04-01 13:26 | EKG ---
Test Reason : Blood Pressure : / mmHG Vent. Rate : 057 BPM Atrial Rate : 057 BPM P-R Int : 154 ms QRS Dur : 076 ms QT Int : 400 ms P-R-T Axes : 042 051 031 degrees QTc Int : 389 ms SINUS BRADYCARDIA WITH SINUS ARRHYTHMIA OTHERWISE NORMAL ECG WHEN COMPARED WITH ECG OF 31-MAR-2018 13:11, NO SIGNIFICANT CHANGE WAS FOUND Confirmed by SNOW MILLER MD ([id number]) on 04/01/2018 1:25:30 PM Referred By: Asher DEWITT Confirmed By:SNOW MILLER MD
[2018-04-01 18:32] LABS: INR 1.13 (0.83-1.09); PROTHROMBIN TIME (PATIENT) 13.3 SEC (9.7-13.0)
[2018-04-02 07:37] LABS: HEMATOCRIT 47.4 % (32.4-45.2); HEMOGLOBIN 15.4 GM/dL (10.7-15.3); MCH 29.1 pg (25.7-33.7); MCHC 32.5 g/dl (32.0-36.0); MEAN CELL VOLUME 89.7 fl (80-96); MEAN PLT VOLUME 8.3 fl (7.5-11.1); PLATELET COUNT 293 K/MM3 (134-434); RBC 5.29 M/mm3 (3.60-5.2); RDW 12.8 % (11.6-15.6); WHITE BLOOD COUNT 10.4 K/mm3 (4.0-10.0)
[2018-04-02 08:25] LABS: INR 1.18 (0.83-1.09)
[2018-04-02 08:40] LABS: ALBUMIN 3.5 g/dl (3.4-5.0); ALK PHOS 65 U/L (45-117); ANION GAP 10 MMOL/L (8-16); BILIRUBIN,TOTAL 0.9 mg/dL (0.2-1); BLOOD UREA NITROGEN 9 mg/dL (7-18); CALCIUM 8.8 mg/dL (8.5-10.1); CHLORIDE 101 mmol/L (98-107); CO2 25 mmol/L (21-32); CREATININE 0.6 mg/dL (0.55-1.3); GLUCOSE,RANDOM 64 mg/dL (74-106); POTASSIUM 3.9 mmol/L (3.5-5.1); SGOT/AST 8 U/L (15-37); SGPT/ALT 18 U/L (13-61); SODIUM 136 mmol/L (136-145); TOT PROT 6.8 g/dl (6.4-8.2)
[2018-04-02] MEDS: SERTRALINE HCL 25 MG TABLET (FP) PO SCH (09:45)
[2018-04-02] MEDS: LACTATED RINGERS SOLUTION 1,000 ML/1,000 ML INFUS.BAG IV SCH (09:46)
[2018-04-02 11:44] VITALS: BP 112/59; PULSE 71; TEMP 98.3
--- NOTE | 2018-04-02 14:17 | PN ---
Progress Note (short form) - Note Progress Note: Subjective: no light headedness, no weakness, no abd pain, no N/V, no vertigo. Objective: Vital Signs: Last Vital Signs Temp Pulse Resp BP Pulse Ox 98.3 F 71 18 112/59 L 96 04/02/18 10:00 04/02/18 10:00 04/02/18 10:00 04/02/18 10:00 04/01/18 21:00 Laboratory Results - last 24 hr 04/01/18 04/02/18 04/02/18 18:00 07:30 07:30 WBC 10.4 H RBC 5.29 H Hgb 15.4 H Hct 47.4 H MCV 89.7 MCH 29.1 MCHC 32.5 RDW 12.8 Plt Count 293 MPV 8.3 PT with INR 13.30 H 14.00 H INR 1.13 H 1.18 H Sodium Potassium Chloride Carbon Dioxide Anion Gap BUN Creatinine Creat Clearance w eGFR Random Glucose Calcium Total Bilirubin AST ALT Alkaline Phosphatase Total Protein Albumin 04/02/18 07:30 WBC RBC Hgb Hct MCV MCH MCHC RDW Plt Count MPV PT with INR INR Sodium 136 Potassium 3.9 Chloride 101 Carbon Dioxide 25 Anion Gap 10 BUN 9 Creatinine 0.6 Creat Clearance w eGFR > 60 Random Glucose 64 L Calcium 8.8 Total Bilirubin 0.9 AST 8 L ALT 18 Alkaline Phosphatase 65 Total Protein 6.8 Albumin 3.5 Physical Exam: NAD, awake , alert and cooperative . MMM. CV: RRR. NO MRG Lungs: CTAB Ext : no edema or erythema Abd: soft, NT, NL BS ASSESSMENT AND PLAN: 23 y/o lady with no significant medical history who presented after ingestion of rat poison in a suicide attempt 1- suicide attempt: NO SI - f/u with psych . cont zoloft instructed patient not to stop med on her own due to risk for seizure. also not to take extra pills 2- Rat poison ingestion: labs noted 3- Erythrocytosis: f/u as a out pt with hemeatology c home Visit type - Emergency Visit Emergency Visit: Yes ED Registration Date: 03/30/18 Care time: The patient presented to the Emergency Department on the above date and was hospitalized for further evaluation of their emergent condition. - New Patient This patient is new to me today: No - Critical Care Critical Care patient: No
--- NOTE | 2018-04-03 14:48 | DS ---
Physical Exam: SUBJECTIVE: Patient seen and examined at bedside. No acute events overnight. OBJECTIVE: PHYSICAL EXAM GENERAL: AAOx3. NAD. Comfortable. HEENT: AT/NC. EOMI. RADHA. Moist mucus membranes. NECK: Supple, no LAD/JVD. LUNGS: CTA B/L. No HEART: Regular rate and rhythm, S1, S2 without murmur, rub or gallop. ABDOMEN: Soft, nontender, nondistended, normoactive bowel sounds, no guarding, no rebound, no hepatosplenomegaly, no masses. EXTREMITIES: 2+ pulses, warm, well-perfused, no edema. NEUROLOGICAL: Cranial nerves II through XII grossly intact. Normal speech, gait not observed. PSYCH: Normal mood, normal affect. SKIN: Warm, dry, normal turgor, no rashes or lesions noted LABS HOSPITAL COURSE: Date of Admission:03/30/18 23F w/ no significant pmhx of presented to the hospital after ingesting rat poison following a verbal argument with her significant other. Upon arrival, pt presented with abdominal pain. Poison control was contacted and gave recommendation to monitor pt's CBC and INR for 72 hours and to monitor for any signs of bleeding. Psych consult was also ordered to assess pt's mental status. Pt was subsequently admitted to the hospital for further monitoring and 1:1 observation. Lab work was done that was stable throughout the duration of the hospital stay. Hemoglobin, however, was elevated, although with no acute concern. Psych assessed pt and recommended treatment with Zoloft for anxiety with outpatient follow up for counseling services after discharge. Throughout the hospital stay, pt's symptoms improved. She was discharged home with instructions to take Zoloft and to follow up with her PCP as well as psychiatrist. Additionally, pt was given recommendation to follow up with hematology for further evaluation of her erythrocytosis. Date of Discharge: 04/03/18 Minutes to complete discharge: 40 Discharge Summary Reason For Visit: DURG OVERDOSE Condition: Improved - Instructions Diet, Activity, Other Instructions: You were admitted to the hospital after ingesting rat poison. In the hospital, lab work was done that was normal. Poison control was contacted and recommended observation for 72 hours as well as lab work to be done to check blood levels and liver enzymes. Throughout your stay, your lab values were normal. You were observed in the hospital for 72 hours with no symptomatic complaints. You are being discharged home. MEDICAL RECOMMENDATIONS We have added the following medication(s) for you to start taking: Please take Zoloft 25 mg by mouth once a day. do not stop this medication on your own as it can be dangerous CONSULT RECOMMENDATIONS Please follow up with your primary care physician within 1 week. Please follow up with your psychiatrist, Eder Ortiz, within 1 week. If you experience suicidal ideas or plans, abnormal profuse bleeding, worsening abdominal pain, nausea/vomiting, chest pain or shortness of breath, please proceed to your nearest emergency room immediately. you need blood work done by your PCP ( CMP, INR) in 1 week. please follow you need follow up with hematology due to elevated hemoglobin. You can see Dr. braga Referrals: Angel Gaines NP [Nurse Practitioner] - Kamlesh Braga MD [Staff Physician] - Disposition: HOME - Home Medications Comprehensive Discharge Medication List: Ambulatory Orders Sertraline HCl [Zoloft -] 25 mg PO DAILY #30 tablet 04/02/18 This patient is new to me today: No Emergency Visit: Yes ED Registration Date: 03/30/18 Care time: The patient presented to the Emergency Department on the above date and was hospitalized for further evaluation of their emergent condition. Critical Care patient: No - Discharge Referral Referred to [facility] No
== END 2018-04-02 16:01 | disposition home or self-care (01) | DRG 816 ==
LOC: JER 17:41 → JERBED 20:10 → J8W 03-31 10:12
PROVIDERS: ADMIT Internal Medicine; ATTEND Internal Medicine
DX: T60.4X2A Toxic effect of rodenticides, intentional self-harm, initial encounter (principal); R51 Headache; D75.1 Secondary polycythemia; R45.851 Suicidal ideations
CPT/HCPCS: 36415; 70450-TC; 80053; 80307; 81003; 83735; 84100; 84703; 85025; 85027; 85044; 85610; 85730; 87086; 87186; 93005; 93010; 99285-25; Q0162

== ENCOUNTER 2018-09-25 13:32 | Emergency (ER) | payer OTHER ==
--- NOTE | 2018-09-25 13:36 | PDOC ---
Rapid Medical Evaluation Time Seen by Provider: 09/25/18 13:33 Medical Evaluation: Allergies Allergy/AdvReac Type Severity Reaction Status Date / Time No Known Allergies Allergy Verified 03/30/18 17:44 09/25/18 13:33 I have performed a brief in-person evaluation of this patient. The patient presents with a chief complaint of: global headache x2 days Pertinent physical exam findings: PERRLA, EOMI. Gait steady. No focal deficits. I have ordered the following: UPT The patient will proceed to the ED for further evaluation. Discharge Disposition - Diagnosis Headache - Referrals - Patient Instructions - Post Discharge Activity
[2018-09-25 13:38] VITALS: BP 119/70; PULSE 79; TEMP 98.1
[2018-09-25 14:03] LABS: HCG,QUALITATIVE URINE Negative
[2018-09-25 14:12] LABS: URINE APPEARANCE CLEAR; URINE BILIRUBIN NEGATIVE (NEGATIVE); URINE COLOR YELLOW; URINE GLUCOSE (UA) NEGATIVE (NEGATIVE); URINE KETONE NEGATIVE (NEGATIVE); URINE LEUK ESTERASE NEGATIVE (NEGATIVE); URINE NITRITE NEGATIVE (NEGATIVE); URINE PROTEIN NEGATIVE (NEGATIVE)
--- NOTE | 2018-09-25 14:39 | PDOC ---
History of Present Illness - General Chief Complaint: Headache Stated Complaint: HEADACHE Time Seen by Provider: 09/25/18 13:33 History Source: Patient Exam Limitations: No Limitations - History of Present Illness Initial Comments: 09/25/18 14:30 patient is here with complaints of wraparound headache pain, worse on the right than the left the past 2 days. States took Tylenol without much resolved. Denies fever, earache or sore throat pain. Denies any dizziness or visual changes. 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 Severity: Yes: mild, moderate Associated Symptoms: reports: loss of consciousness, muscle spasms Past History - Travel Traveled outside of the country in the last 30 days: No Close contact w/someone who was outside of country & ill: No - Past Medical History Allergies/Adverse Reactions: Allergies Allergy/AdvReac Type Severity Reaction Status Date / Time No Known Allergies Allergy Verified 09/25/18 13:35 Home Medications: Ambulatory Orders Sertraline HCl [Zoloft -] 25 mg PO DAILY #30 tablet 04/02/18 Cyclobenzaprine HCl 10 mg PO Q8H PRN #14 tablet 09/25/18 Naproxen [Naprosyn -] 500 mg PO BID #30 tablet 09/25/18 Asthma: No Cancer: No Cardiac Disorders: No COPD: No Diabetes: No HTN: No Seizures: No Thyroid Disease: No - Immunization History Immunization Up to Date: Yes - Suicide/Smoking/Psychosocial Hx Smoking History: Current every day smoker Have you smoked in the past 12 months: No If you are a former smoker, when did you quit?: MICMALI daily Information on smoking cessation initiated: No Hx Alcohol Use: No Drug/Substance Use Hx: No Substance Use Type: None Hx Substance Use Treatment: No Review of Systems - Review of Systems Able to Perform ROS?: Yes Is the patient limited Cymro proficient: Yes Constitutional: Yes: Symptoms Reported, See HPI. No: Fever, Malaise HEENTM: No: Symptoms Reported Respiratory: No: Symptoms reported Musculoskeletal: Yes: Symptoms Reported, See HPI, Muscle Pain, Muscle Weakness *Physical Exam - Vital Signs Last Vital Signs Temp Pulse Resp BP Pulse Ox 98.1 F 79 18 119/70 100 09/25/18 13:36 09/25/18 13:36 09/25/18 13:36 09/25/18 13:36 09/25/18 13:36 - Physical Exam General Appearance: Yes: Nourished, Appropriately Dressed, Apparent Distress HEENT: positive: RADHA, Normal ENT Inspection, TMs Normal, Pharynx Normal. negative: Rhinorrhea Neck: positive: Tender, Supple, Other (tension and tight musculatureto the paravertebral spinous muscles of the neck worse on the right than the left. With point tenderness and pressure can reproduce headache pain of patient's complaint. No cervical spine tenderness, crepitus or step-offs.) Respiratory/Chest: positive: Lungs Clear, Normal Breath Sounds Musculoskeletal: positive: Decreased Range of Motion, Muscle Spasm. 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 NML intact, Fully Oriented, Alert, Normal Mood/ Affect, Normal Response, Motor Strength / ED Treatment Course - ADDITIONAL ORDERS Additional order review: Laboratory Results 09/25/18 13:00 Urine Color Yellow Urine Appearance Clear Urine pH 6.0 Ur Specific Edwards 1.020 Urine Protein Negative Urine Glucose (UA) Negative Urine Ketones Negative Urine Blood Negative Urine Nitrite Negative Urine Bilirubin Negative Urine Urobilinogen 1.0 Ur Leukocyte Esterase Negative Urine HCG, Qual Negative Progress Note - Progress Note Progress Note: tension headache, will treat with NSAIDs and cyclo-Benzapril *DC/Admit/Observation/Transfer Diagnosis at time of Disposition: Headache Qualifiers: Headache type: tension-type Headache chronicity pattern: acute headache Intractability: not intractable Qualified Code(s): G44.209 - Tension-type headache, unspecified, not intractable - Discharge Dispostion Disposition: HOME Condition at time of disposition: Stable Decision to Admit order: No - Prescriptions Prescriptions: Cyclobenzaprine HCl 10 mg PO Q8H PRN #14 tablet PRN Reason: spasm Naproxen [Naprosyn -] 500 mg PO BID #30 tablet - Referrals Referrals: Alcon Gutiérrez MD [Staff Physician] - - Patient Instructions Printed Discharge Instructions: DI for Hormonal and Tension Headaches Additional Instructions: Rest, no heavy lifting or exercise until pain is resolved Hot soaks to neck and low back as often as possible/hot showers or Jacuzzis No massage or therapy until spasm is gone Continue Naprosyn 500 mg tablet, 1 tablet every 8 hours for the next 3 days then as needed for pain and swelling Cyclobenzaprine 1-10mg every 8 hours as needed for spasm If not significant improvement within 24 hours with medication and rest regime, followup with private physician for change in medications and /or therapy. - Post Discharge Activity
== END 2018-09-25 14:43 | disposition home or self-care (01) ==
LOC: JERFT 13:32
DX: G44.209 Tension-type headache, unspecified, not intractable (principal)
CPT/HCPCS: 81003; 84703; 87086; 99281-25